=== PATIENT | male | born 1960 | race Two or more races ===

== ENCOUNTER 2019-04-19 12:18 | Inpatient (IN) | payer OTHER ==
[~2019-04-19] VITALS: Ht 162.6 cm; Wt 92.5 kg
[2019-04-19] MEDS ORDERED: PANT40TA4 PO (12:43)
[2019-04-19] MEDS ORDERED: LISI40TA4 PO (12:43)
[2019-04-19] MEDS ORDERED: ATOR10TA PO (12:43)
[2019-04-19] MEDS ORDERED: METF-440 PO (12:43)
[2019-04-19] MEDS ORDERED: IBUP-1957 PO (12:43)
[2019-04-19] MEDS ORDERED: OMEG1CAP55 PO (12:43)
[2019-04-19] MEDS ORDERED: LORA10TA7 PO (12:43)
[2019-04-19] MEDS ORDERED: ASPI81TA31 PO (12:43)
[2019-04-19] MEDS ORDERED: PIPERACILLIN SODIUM/TAZOBACTAM 3.375 G in IV DEXTROSE 5% 50 ML IV ONE (12:45)
[2019-04-19] MEDS ORDERED: VANCOMYCIN IV 1,000 MG in IV DEXTROSE 5% 250 ML IV ONE (12:45)
[2019-04-19] MEDS ORDERED: IV NORMAL SALINE 1000 ML BAG IV ONE (12:45)
[2019-04-19 12:59] LABS: *BILIRUBIN,URIN NEGATIVE (NEGATIVE); *BLOOD, URINE NEGATIVE (NEGATIVE); *CLARITY,URINE CLEAR (CLEAR); *COLOR,URINE DARK YELLOW (YELLOW); *KETONES,URINE TRACE (NEGATIVE); LEUKOCYTE ESTERASE ,URINE NEGATIVE (NEGATIVE); NITRITE, URINE NEGATIVE (NEGATIVE); UGLUCOSE 2+ (NEGATIVE)
[2019-04-19 13:01] LABS: BASOPHILS # (AUTO) 0.1 K/uL (0.0-8.0); BASOPHILS % (AUTO) 0.6 % (0.0-2.0); EOSINOPHILS # (AUTO) 0.2 K/uL (0.0-0.7); EOSINOPHILS % (AUTO) 2.7 % (0.0-7.0); HEMATOCRIT 43.2 % (36.7-47.1); HEMOGLOBIN 14.7 g/dL (12.5-16.3); LYMPHOCYTES # (AUTO) 2.2 K/uL (20.0-40.0); LYMPHOCYTES % (AUTO) 28.1 % (20.5-51.5); MEAN CORPUSCULAR HEMOGLOBIN 30.9 uug (23.8-33.4); MEAN CORPUSCULAR HGB CONC 34 g/dL (32.5-36.3); MEAN CORPUSCULAR VOLUME 90.7 fL (73.0-96.2); MONOCYTES # (AUTO) 0.7 K/uL (2.0-10.0); MONOCYTES % (AUTO) 8.4 % (0.0-11.0); NEUTROPHILS # (AUTO) 4.7 K/uL (1.8-8.9); NEUTROPHILS % (AUTO) 60.2 % (38.5-71.5); PLATELET COUNT (AUTO) 250 K/uL (152-348); RED BLOOD CELL COUNT(AUTO) 4.76 MIL/uL (4.06-5.63); WHITE BLOOD COUNT (AUTO) 7.9 K/uL (3.6-10.2)
[2019-04-19] MEDS ORDERED: PIPERACILLIN/TAZOBACTAM/D5W 50 ML IV ONE (13:08)
[2019-04-19 13:09] LABS: CREATININE 1.1 mg/dL (0.6-1.3); POTASSIUM 3.7 mmol/L (3.5-5.1)
[2019-04-19] MEDS ORDERED: VANCOMYCIN IV 200 ML ONE (13:09)
[2019-04-19 13:10] LABS: BACTERIA,URINE NONE SEEN /HPF (NONE SEEN); RBC,URINE 0-3 /HPF (0-3); SQUAMOUS EPITHELIAL CELL,UR FEW /HPF (NONE SEEN); WBC,URINE 0-3 /HPF (0-3)
--- NOTE | 2019-04-19 13:14 | NUR ---
PT IS IN ROOM #2B. DR RICHARDSON EVALUATED THE PT.
[2019-04-19 13:15] LABS: BILIRUBIN,DIRECT 0.2 mg/dL (0.0-0.2); BILIRUBIN,TOTAL 0.6 mg/dL (0.2-1.0); TOTAL PROTEIN, SERUM 7.8 g/dL (6.4-8.2)
[2019-04-19] MEDS ORDERED: SWABABLE VALVE TRANSFER SET EA MC ONE (13:39)
[2019-04-19] MEDS ORDERED: IOHEXOL 300MG/ML 100 ML INFUS..BTL ONE (13:39)
[2019-04-19] MEDS ORDERED: NORMAL SALINE FLUSH 10 ML DISP.SYRIN ONE (13:39)
[2019-04-19] MEDS ORDERED: IV NORMAL SALINE 250 ML IV ONE (13:40)
--- NOTE | 2019-04-19 15:21 | NUR ---
PT WAS TRANSFERED TO ROOM 3319. REPORT WAS GIVEN TO M/S RN.
[2019-04-19] MEDS ORDERED: ZOLPIDEM 5 MG TABLET PO PRN (16:15)
[2019-04-19] MEDS ORDERED: HYDROCODONE/APAP 5-325MG TABLET PO PRN (16:15)
[2019-04-19] MEDS ORDERED: MAGNESIUM HYDROXIDE 30 ML LIQUID UDC PO PRN (16:15)
[2019-04-19] MEDS ORDERED: LORATADINE 10 MG TABLET PO SCH (16:15)
[2019-04-19] MEDS ORDERED: ACETAMINOPHEN 325 MG TABLET PO PRN (16:15)
[2019-04-19] MEDS ORDERED: ONDANSETRON 4 MG/2 ML VIAL IV PRN (16:15)
[2019-04-19] MEDS ORDERED: DEXTROSE 50% 50 ML DISP.SYRIN IV PRN (16:15)
--- NOTE | 2019-04-19 16:34 | NUR ---
CLINICAL PHARMACY NOTE:VANCOMYCIN Request for vancomycin dosing on 58 y/o male 162.56cm 92.5kg for abdominal wall cellulitis Temp 98.2 BUN 29 Scr 1.1 WBC 7.9 also receiving Zosyn. Got vancomycin 1gm in ER Continue vancomycin 1250mg ivpb q16h. Estimate trough 14. Will order trough level prior to 4th dose. Will continue to monitor
[2019-04-19] MEDS: BLOOD SUGAR DIAGNOSTIC 1 EACH STRIP VI SCH ×2 (16:45→20:47)
[2019-04-19] MEDS: IV 1/2NS 1000 ML 1,000 ML IV PRN (17:15)
[2019-04-19] MEDS: METFORMIN HCL 500 MG TABLET PO SCH (17:15)
[2019-04-19] MEDS: INSULIN REGULAR, HUMAN 300 UNIT/3 ML VIAL SQ PRN ×2 (17:19→20:50)
[2019-04-19 18:11] VITALS: BP 129/74
[2019-04-19] MEDS: PIPERACILLIN/TAZOBACTAM/D5W 50 ML IV SCH ×2 (18:32→23:01)
--- NOTE | 2019-04-19 18:53 | NUR ---
Patient admission complete. Patient request to move IV site. Left forearm 22 gauge placed. Given IV fluid and antibiotic as ordered. Accucheck for blood glucose taken with sliding scale insulin coverage given. Tolerated 100% of dinner well. Will endorse to next shift. Baldo Matthew RN
--- NOTE | 2019-04-19 19:23 | NUR ---
Handoff to DIVYA Pack. Baldo Matthew RN Addendum: 04/19/19 at 1925 by BALDO LUX RN DIVYA Pack
--- NOTE | 2019-04-19 19:30 | NUR ---
PATIENT RECEIVED IN BED, WATCHING TV. IV INTACT AND PATENT IN LEFT FOREARM RUNNING FLUIDS AT 80 ML/HR. ABDOMINAL ABSCESS ASSESSED AND COVERED WITH MEPLEX. NO C/O PAIN OR SOB AT THIS TIME. WILL CONTINUE TO MONITOR.
[2019-04-19 20:36] VITALS: BP 109/53
[2019-04-19] MEDS ORDERED: ATORVASTATIN 10 MG TABLET PO SCH (21:00)
[2019-04-20] MEDS: VANCOMYCIN IV 1,250 MG in IV DEXTROSE 5% 500 ML IV SCH ×2 (00:15→17:20)
[2019-04-20] MEDS: PIPERACILLIN/TAZOBACTAM/D5W 50 ML IV SCH ×3 (05:12→19:07)
[2019-04-20 05:28] VITALS: BP 115/54
--- NOTE | 2019-04-20 06:23 | NUR ---
PATIENT SLEPT WELL DURING THE NIGHT. ALL DUE MEDICATIONS GIVEN-TOLERATED WELL. SIDE RAILS UP BILATERALLY FOR SAFETY. WILL ENDORSE TO ONCOMING SHIFT ACCORDINGLY.
[2019-04-20] MEDS: BLOOD SUGAR DIAGNOSTIC 1 EACH STRIP VI SCH ×4 (06:34→20:38)
[2019-04-20 06:35] LABS: CREATININE 0.9 mg/dL (0.6-1.3); MAGNESIUM 1.6 mg/dL (1.8-2.4); PHOSPHOROUS 3.5 mg/dL (2.5-4.9); POTASSIUM 3.4 mmol/L (3.5-5.1)
[2019-04-20 06:44] LABS: BASOPHILS % (AUTO) 0.6 % (0.0-2.0); EOSINOPHILS # (AUTO) 0.4 K/uL (0.0-0.7); HEMOGLOBIN 13.7 g/dL (12.5-16.3); MONOCYTES # (AUTO) 0.5 K/uL (2.0-10.0); MONOCYTES % (AUTO) 7.7 % (0.0-11.0)
[2019-04-20 06:47] LABS: THYROID STIMULATING HORMONE 4.131 mIU/mL (0.358-3.740)
[2019-04-20 07:02] LABS: EOSINOPHILS % (AUTO) 6.8 % (0.0-7.0); HEMATOCRIT 40.3 % (36.7-47.1); LYMPHOCYTES # (AUTO) 1.3 K/uL (20.0-40.0); LYMPHOCYTES % (AUTO) 23.1 % (20.5-51.5); MEAN CORPUSCULAR HEMOGLOBIN 30.7 uug (23.8-33.4); MEAN CORPUSCULAR HGB CONC 34 g/dL (32.5-36.3); MEAN CORPUSCULAR VOLUME 90.5 fL (73.0-96.2); NEUTROPHILS # (AUTO) 3.6 K/uL (1.8-8.9); NEUTROPHILS % (AUTO) 61.8 % (38.5-71.5); PLATELET COUNT (AUTO) 218 K/uL (152-348); RED BLOOD CELL COUNT(AUTO) 4.46 MIL/uL (4.06-5.63)
[2019-04-20 07:03] LABS: WHITE BLOOD COUNT (AUTO) 5.9 K/uL (3.6-10.2)
--- NOTE | 2019-04-20 07:30 | NUR ---
Patient awake, alert, on bed, not in any form of distress. He denies any pain or discomfort at this time. Assisted with his needs. Call light placed within reach.
[2019-04-20] MEDS: ASPIRIN 81 MG TAB.CHEW PO SCH (08:25)
[2019-04-20] MEDS: METFORMIN HCL 500 MG TABLET PO SCH (08:25)
[2019-04-20] MEDS: PANTOPRAZOLE SODIUM 40 MG TABLET.DR PO SCH (08:26)
[2019-04-20] MEDS: LISINOPRIL 20 MG TABLET PO SCH (09:00)
[2019-04-20] MEDS ORDERED: LORATADINE 10 MG TABLET PO PRN (09:00)
--- NOTE | 2019-04-20 09:21 | NUR ---
Verified with Dr. Segovia regarding due lisinopril at this time with BP of 106/64 and per MD hold Lisinopril for SBP less than 110mmHg.
[2019-04-20] MEDS ORDERED: MAGNESIUM OXIDE 400 MG TABLET PO ONE (09:30)
[2019-04-20] MEDS ORDERED: POTASSIUM CHLORIDE 20 MEQ TAB.PRT.SR PO ONE (09:30)
--- NOTE | 2019-04-20 11:12 | NUR ---
CLINICAL PHARMACY NOTE:VANCOMYCIN To continue vancomycin dosing on 58 y/o male 162.56cm 92.5kg for abdominal wall cellulitis Temp 98.1 BUN 20 Scr 0.9 WBC 5.9 also receiving Zosyn. Got vancomycin 1gm in ER Continue vancomycin 1250mg ivpb q16h. Estimate trough 14. Second dose today at 1600. Will order trough level prior to 4th dose (not ordered yet). Will continue to monitor
[2019-04-20 11:40] VITALS: BP 99/53
[2019-04-20] MEDS: INSULIN REGULAR, HUMAN 300 UNIT/3 ML VIAL SQ PRN ×3 (12:15→20:40)
[2019-04-20] MEDS: IV 1/2NS 1000 ML 1,000 ML IV PRN (13:36)
[2019-04-20 15:58] VITALS: BP 99/52
--- NOTE | 2019-04-20 20:00 | NUR ---
RECEIVED PATIENT AWAKE, SITTING IN CHAIR AT BEDSIDE. PATIENT IS A/O X4. DENIES PAIN OR DISCOMFORT. NO RESP. DISTRESS NOTED. VSS. IVF INFUSING WELL TO LEFT FA #22 GAUGE. CALL LIGHT IN REACH. ALL NEEDS ATTENDED. WILL CONTINUE TO MONITOR AND ASSESS.
[2019-04-20 20:12] VITALS: BP 110/65
[2019-04-20] MEDS: CULTURELLE CAPSULE PO SCH (20:38)
[2019-04-21] MEDS: PIPERACILLIN/TAZOBACTAM/D5W 50 ML IV SCH ×3 (00:14→12:49)
[2019-04-21 06:20] VITALS: BP 112/62
[2019-04-21] MEDS: IV 1/2NS 1000 ML 1,000 ML IV PRN (06:20)
[2019-04-21] MEDS: BLOOD SUGAR DIAGNOSTIC 1 EACH STRIP VI SCH ×4 (06:35→21:00)
[2019-04-21 07:05] LABS: BASOPHILS % (AUTO) 0.7 % (0.0-2.0); EOSINOPHILS # (AUTO) 0.5 K/uL (0.0-0.7); EOSINOPHILS % (AUTO) 8.9 % (0.0-7.0); HEMATOCRIT 42.1 % (36.7-47.1); LYMPHOCYTES # (AUTO) 0.8 K/uL (20.0-40.0); LYMPHOCYTES % (AUTO) 14.9 % (20.5-51.5); MEAN CORPUSCULAR HEMOGLOBIN 30.4 uug (23.8-33.4); MEAN CORPUSCULAR HGB CONC 33 g/dL (32.5-36.3); MONOCYTES # (AUTO) 0.5 K/uL (2.0-10.0); NEUTROPHILS # (AUTO) 3.6 K/uL (1.8-8.9); NEUTROPHILS % (AUTO) 66.5 % (38.5-71.5); PLATELET COUNT (AUTO) 208 K/uL (152-348); RED BLOOD CELL COUNT(AUTO) 4.62 MIL/uL (4.06-5.63); WHITE BLOOD COUNT (AUTO) 5.4 K/uL (3.6-10.2)
[2019-04-21 07:39] LABS: CREATININE 0.9 mg/dL (0.6-1.3); MAGNESIUM 1.4 mg/dL (1.8-2.4); PHOSPHOROUS 2.9 mg/dL (2.5-4.9); POTASSIUM 3.7 mmol/L (3.5-5.1)
[2019-04-21 08:00] VITALS: BP 141/86
[2019-04-21] MEDS: INSULIN REGULAR, HUMAN 300 UNIT/3 ML VIAL SQ PRN ×3 (08:13→17:25)
[2019-04-21] MEDS: VANCOMYCIN IV 1,250 MG in IV DEXTROSE 5% 500 ML IV SCH (08:14)
[2019-04-21] MEDS: CULTURELLE CAPSULE PO SCH ×2 (08:25→22:15)
[2019-04-21] MEDS: ASPIRIN 81 MG TAB.CHEW PO SCH (08:25)
[2019-04-21] MEDS: PANTOPRAZOLE SODIUM 40 MG TABLET.DR PO SCH (08:25)
[2019-04-21] MEDS: LISINOPRIL 20 MG TABLET PO SCH (08:26)
[2019-04-21] MEDS ORDERED: MAGNESIUM SULFATE 2 GM in IV DEXTROSE 5% 100 ML IV ONE (09:30)
[2019-04-21] MEDS: MAGNESIUM SULFATE/D5W 100 ML IV SCH ×2 (10:18→11:13)
[2019-04-21 11:25] VITALS: BP 123/67
--- NOTE | 2019-04-21 11:35 | NUR ---
CLINICAL PHARMACY NOTE:VANCOMYCIN S: To continue vancomycin dosing on 58 y/o male patient for abdominal wall cellulitis O: Temp 98 BUN 12 Scr 0.9 WBC 5.4 ht 162.5 cm wt 92.5 kg Plan Continue vancomycin same dose of 1250mg ivpb q16h for today. 3rd dose today at 0800. Will order trough level prior to 4th dose (ordered for 04/21 at 2330- RN has been informed to hold midnight dose if trough level above 20 mcg/ml). Pharmacy shall review the level in am & adjust the dose if needed. Will continue to monitor
--- NOTE | 2019-04-21 13:48 | NUR ---
WOUND CARE CONSULT: PT PRESENTS WITH ABDOMINAL WOUND/ABSCESS WHICH IS ADJACENT TO OLD SURGICAL SCAR, PRESENT ON ADMISSION. PT STATES HAD PREVIOUS FISTULA SURGERY BUT DOES NOT REMEMBER WHO MD WAS. DEFER TO MD FOR POSSIBLE SURGICAL CONSULT. RECOMMENDATIONS MADE FOR SKIN PROTECTION AND WOUND CARE. DISCUSSED WITH NURSING STAFF. WILL SEE PRN. PT IS CONTINENT AND AMBULATORY. CURRENT DIMITRIOS SCORE IS 21. Addendum: 04/21/19 at 1350 by TJ EWING RN Amended: Links added.
[2019-04-21 15:29] VITALS: BP 110/58
--- NOTE | 2019-04-21 19:39 | NUR ---
pt is self care. Eating well. voiding well. Abdominal wound cleanse. No c/o pain. blood sugars monitored. Out of bed with all meals. bed low and locked. call light within reached. will cont to monitor.
[2019-04-21 20:39] VITALS: BP 125/71
[2019-04-22] MEDS: IV 1/2NS 1000 ML 1,000 ML IV PRN (00:21)
[2019-04-22] MEDS: VANCOMYCIN IV 1,250 MG in IV DEXTROSE 5% 500 ML IV SCH (00:21)
[2019-04-22 05:34] VITALS: BP 122/64
[2019-04-22] MEDS: BLOOD SUGAR DIAGNOSTIC 1 EACH STRIP VI SCH ×4 (06:32→21:24)
[2019-04-22] MEDS: INSULIN REGULAR, HUMAN 300 UNIT/3 ML VIAL SQ PRN ×4 (06:39→21:26)
[2019-04-22 07:00] LABS: BASOPHILS % (AUTO) 0.8 % (0.0-2.0); EOSINOPHILS # (AUTO) 0.4 K/uL (0.0-0.7); EOSINOPHILS % (AUTO) 8.6 % (0.0-7.0); HEMATOCRIT 41.7 % (36.7-47.1); HEMOGLOBIN 14.3 g/dL (12.5-16.3); LYMPHOCYTES # (AUTO) 1.1 K/uL (20.0-40.0); LYMPHOCYTES % (AUTO) 20.5 % (20.5-51.5); MEAN CORPUSCULAR HEMOGLOBIN 30.9 uug (23.8-33.4); MEAN CORPUSCULAR HGB CONC 34 g/dL (32.5-36.3); MEAN CORPUSCULAR VOLUME 90.1 fL (73.0-96.2); MONOCYTES # (AUTO) 0.4 K/uL (2.0-10.0); MONOCYTES % (AUTO) 7.8 % (0.0-11.0); NEUTROPHILS # (AUTO) 3.2 K/uL (1.8-8.9); NEUTROPHILS % (AUTO) 62.3 % (38.5-71.5); PLATELET COUNT (AUTO) 207 K/uL (152-348); RED BLOOD CELL COUNT(AUTO) 4.62 MIL/uL (4.06-5.63); WHITE BLOOD COUNT (AUTO) 5.2 K/uL (3.6-10.2)
--- NOTE | 2019-04-22 07:00 | NUR ---
PATIENT RECEIVED IN BED, AWAKE. AOX4. DENIES PAIN OR SOB. UPON INSPECTION OF ABDOMINAL DRESSING INTACT AND DUE FOR DRESSING CHANGE TODAY. ALL NEEDS MET AT THIS TIME. SAFETY AND FALL PRECAUTIONS IN PLACE. BED IN LOW POSITION AND LOCKED. CALL LIGHT IN REACH. WILL CONTINUE TO MONITOR.
--- NOTE | 2019-04-22 07:00 | NUR ---
Pt is A&Ox3, calm & cooperative. Denies any pain. IV Vanco given as per pharmacist at 2200 last night. Dressing to abdomen D&I. No voiced concerns. No diabetic crisis observed during shift. All needs met. Addendum: 04/22/19 at 0706 by JONG MENSAH RN Correction to note: IV Vanco given at 0000. Vanco trough at 2230 last night was 4.5.
[2019-04-22 07:09] LABS: CREATININE 0.8 mg/dL (0.6-1.3); MAGNESIUM 1.5 mg/dL (1.8-2.4); POTASSIUM 3.5 mmol/L (3.5-5.1)
[2019-04-22] MEDS: VANCOMYCIN IV 1,500 MG in IV DEXTROSE 5% 500 ML IV SCH ×2 (08:51→18:27)
[2019-04-22] MEDS: LISINOPRIL 20 MG TABLET PO SCH (08:52)
[2019-04-22] MEDS: ASPIRIN 81 MG TAB.CHEW PO SCH (08:55)
[2019-04-22] MEDS: PANTOPRAZOLE SODIUM 40 MG TABLET.DR PO SCH (08:55)
[2019-04-22] MEDS: CULTURELLE CAPSULE PO SCH ×2 (08:55→21:17)
[2019-04-22 11:07] VITALS: BP 132/71
--- NOTE | 2019-04-22 11:20 | NUR ---
CLINICAL PHARMACY NOTE:VANCOMYCIN S: To continue vancomycin dosing on 58 y/o male patient for abdominal wall cellulitis O: Temp 98.2 BUN 10 Scr 0.8 WBC 5.2 Vanco trough level: 4.5 (on 04/21 at 2330) ht 162.5 cm wt 92.5 kg Plan Since vanco trough level is 4.5 mcg/ml, will change vanco dose to 1500mg ivpb q10h for predicted vanco trough level of 15 mcg/ml. 1st dose today at 0900. Will order trough level prior to 4th dose (ordered for 04/23 at 1430). Pharmacy shall review the level in am & adjust the dose if needed. Will continue to monitor
[2019-04-22] MEDS: MAGNESIUM SULFATE/D5W 100 ML IV SCH ×2 (13:29→15:19)
[2019-04-22 15:32] VITALS: BP 110/64
[2019-04-22] MEDS: METFORMIN HCL 500 MG TABLET PO SCH (18:27)
--- NOTE | 2019-04-22 19:03 | NUR ---
PATIENT AOX4 THROUGHOUT THE SHIFT. VITAL SIGNS STABLE. PATIENT COMPLIANT WITH ALL CARE. ALL NEEDS MET DURING SHIFT.
[2019-04-22 19:21] VITALS: BP 143/69
[2019-04-23 03:26] VITALS: BP 131/77
[2019-04-23] MEDS: IV 1/2NS 1000 ML 1,000 ML IV PRN (05:14)
[2019-04-23] MEDS: VANCOMYCIN IV 1,500 MG in IV DEXTROSE 5% 500 ML IV SCH ×2 (05:14→16:15)
[2019-04-23 06:44] LABS: BASOPHILS % (AUTO) 0.6 % (0.0-2.0); EOSINOPHILS # (AUTO) 0.4 K/uL (0.0-0.7); EOSINOPHILS % (AUTO) 7.1 % (0.0-7.0); HEMATOCRIT 41.3 % (36.7-47.1); HEMOGLOBIN 14.2 g/dL (12.5-16.3); LYMPHOCYTES % (AUTO) 16.6 % (20.5-51.5); MEAN CORPUSCULAR HEMOGLOBIN 30.9 uug (23.8-33.4); MEAN CORPUSCULAR HGB CONC 34 g/dL (32.5-36.3); MONOCYTES # (AUTO) 0.6 K/uL (2.0-10.0); MONOCYTES % (AUTO) 9.8 % (0.0-11.0); NEUTROPHILS # (AUTO) 4.1 K/uL (1.8-8.9); NEUTROPHILS % (AUTO) 65.9 % (38.5-71.5); PLATELET COUNT (AUTO) 219 K/uL (152-348); RED BLOOD CELL COUNT(AUTO) 4.58 MIL/uL (4.06-5.63); WHITE BLOOD COUNT (AUTO) 6.1 K/uL (3.6-10.2)
[2019-04-23] MEDS: BLOOD SUGAR DIAGNOSTIC 1 EACH STRIP VI SCH ×4 (06:44→21:02)
--- NOTE | 2019-04-23 06:52 | NUR ---
Patient awake alert and orientedx4. Rested well in between care. IV on L AC intact and patent with 1/2 NS at 80cc/hr as well as vanco abx infusing. Wound care on lower abdomen changed last night. No acute distress noted at this time. Call light within reach. All needs met. Safety measures implemented and effective. Comfort maintained at all times. Continue plan of care.
[2019-04-23 06:54] LABS: CREATININE 0.8 mg/dL (0.6-1.3); MAGNESIUM 1.7 mg/dL (1.8-2.4); PHOSPHOROUS 3.4 mg/dL (2.5-4.9); POTASSIUM 3.5 mmol/L (3.5-5.1)
--- NOTE | 2019-04-23 07:15 | NUR ---
RECEIVED PATIENT ON BED, AAOX4 NO ACUTE DISTRESS NOTED. ON CONTACT ISOLATION FOR MRSA OF THE WOUND. IV ACCESS ON LEFT AC #20 INTACT AND PATENT RUNNING 1/2 NS @ 80 CC/HR INFUSING WELL. WOUND DRESSING ON ABDOMEN CLEAN AND INTACT. BLOOD SUGAR THIS AM 180 WILL NEED INSULIN COVERAGE BEFORE BREAKFAST. COMFORT MEASURES PROVIDED. CALL LIGHT WITHIN REACH. WILL CONTINUE TO MONITOR CLOSELY.
[2019-04-23] MEDS: INSULIN REGULAR, HUMAN 300 UNIT/3 ML VIAL SQ PRN ×3 (08:16→17:13)
[2019-04-23] MEDS: CULTURELLE CAPSULE PO SCH ×2 (08:24→20:54)
[2019-04-23] MEDS: ASPIRIN 81 MG TAB.CHEW PO SCH (08:24)
[2019-04-23] MEDS: METFORMIN HCL 500 MG TABLET PO SCH ×2 (08:24→17:11)
[2019-04-23] MEDS: PANTOPRAZOLE SODIUM 40 MG TABLET.DR PO SCH (08:24)
[2019-04-23] MEDS: LISINOPRIL 20 MG TABLET PO SCH (08:35)
[2019-04-23 12:17] VITALS: BP 120/72
--- NOTE | 2019-04-23 12:30 | NUR ---
SEEN AND EXAMINED BY DR. TONY.
[2019-04-23] MEDS: MAGNESIUM SULFATE/D5W 100 ML IV SCH ×2 (13:41→14:37)
--- NOTE | 2019-04-23 14:17 | NUR ---
CLINICAL PHARMACY NOTE:VANCOMYCIN S: To continue vancomycin dosing on 58 y/o male patient for abdominal wall cellulitis O: Temp 98.3 BUN 11 Scr 0.8 WBC 6.1 Trough level: pending today at 1430 ht 162.5 cm wt 92.5 kg Plan Continued on vanco 1500mg ivpb q10h for predicted vanco trough level of 15 mcg/ml. Trough due today at 1430. Will check level and adjust as needed. Will follow when available Addendum: 04/23/19 at 1532 by VADIM RODRIGEZ ADM TROUGH RESULTED 13, ADJUSTED REGIMEN TO 1500MG Q9H FOR NEW ESTIMATED TROUGH OF 15.8, FIRST DOSE TODAY AT 1600. NEXT TROUGH BEFORE 4TH SCHEDULED DOSE DUE TOMORROW AT 1830. WILL CHECK AND ADJUST NEEDED. WILL FOLLOW
[2019-04-23 16:12] VITALS: BP 131/69
--- NOTE | 2019-04-23 20:00 | NUR ---
PATIENT RECEIVED AWAKE, ALERT, AND SITTING IN CHAIR. NO COMPLAINTS OF PAIN OR ACUTE DISTRESS VERBALIZED. VS FROM PREVIOUS SHIFT ARE WNL AND PATIENT IS STABLE. ALL SAFETY AND FALL PRECAUTION MEASURES ARE IN PLACE. BED IS IN LOWEST POSITION WITH BRAKE APPLIED. 2 SIDE RAILS ARE UP AND IN LOCKED POSITION. CALL LIGHT AND PERSONAL ITEMS ARE WITHIN REACH AT ALL TIMES. WILL CONTINUE TO MONITOR.
[2019-04-23 20:03] VITALS: BP 120/60
[2019-04-24] MEDS: VANCOMYCIN IV 1,500 MG in IV DEXTROSE 5% 500 ML IV SCH ×3 (00:13→17:05)
[2019-04-24] MEDS: IV 1/2NS 1000 ML 1,000 ML IV PRN (00:13)
--- NOTE | 2019-04-24 05:21 | NUR ---
PATIENT SLEPT COMFORTABLY THROUGHOUT NIGHT WITHOUT ANY COMPLAINTS OF PAIN OR ACUTE DISTRESS. ALL PRESCRIBED MEDICATIONS AND IV ANTIBIOTICS PROVIDED ORDERED, TOLERATED WELL, WITHOUT ANY ADVERSE EFFECTS. ALL NURSING NEEDS MET PROMPTLY AND PATIENT WAS KEPT WARM AND DRY. VS ARE WNL AND PATIENT HAS BEEN STABLE THIS SHIFT. SAFETY AND FALL PRECAUTIONS REMAIN IN PLACE. BED IN LOWEST POSITION WITH BRAKE APPLIED. 2 SIDE RAILS ARE UP AND IN THE LOCKED POSITION. CALL LIGHT AND PERSONAL ITEMS ARE WITHIN REACH AT ALL TIMES. WILL PROVIDE REPORT TO ONCOMING SHIFT.
[2019-04-24 05:47] VITALS: BP 119/62
[2019-04-24] MEDS: BLOOD SUGAR DIAGNOSTIC 1 EACH STRIP VI SCH ×3 (06:15→15:54)
[2019-04-24 06:38] LABS: BASOPHILS % (AUTO) 0.9 % (0.0-2.0); EOSINOPHILS # (AUTO) 0.3 K/uL (0.0-0.7); EOSINOPHILS % (AUTO) 6.3 % (0.0-7.0); HEMATOCRIT 43.6 % (36.7-47.1); HEMOGLOBIN 14.8 g/dL (12.5-16.3); LYMPHOCYTES # (AUTO) 1.3 K/uL (20.0-40.0); LYMPHOCYTES % (AUTO) 23.6 % (20.5-51.5); MEAN CORPUSCULAR HEMOGLOBIN 30.5 uug (23.8-33.4); MEAN CORPUSCULAR HGB CONC 34 g/dL (32.5-36.3); MEAN CORPUSCULAR VOLUME 90.2 fL (73.0-96.2); MONOCYTES # (AUTO) 0.5 K/uL (2.0-10.0); MONOCYTES % (AUTO) 9.8 % (0.0-11.0); NEUTROPHILS # (AUTO) 3.3 K/uL (1.8-8.9); NEUTROPHILS % (AUTO) 59.4 % (38.5-71.5); PLATELET COUNT (AUTO) 221 K/uL (152-348); RED BLOOD CELL COUNT(AUTO) 4.84 MIL/uL (4.06-5.63); WHITE BLOOD COUNT (AUTO) 5.5 K/uL (3.6-10.2)
[2019-04-24 06:59] LABS: CREATININE 0.7 mg/dL (0.6-1.3); MAGNESIUM 1.9 mg/dL (1.8-2.4); PHOSPHOROUS 3.2 mg/dL (2.5-4.9); POTASSIUM 3.9 mmol/L (3.5-5.1)
[2019-04-24] MEDS: CULTURELLE CAPSULE PO SCH (08:04)
[2019-04-24] MEDS: METFORMIN HCL 500 MG TABLET PO SCH ×2 (08:04→17:12)
[2019-04-24] MEDS: LISINOPRIL 20 MG TABLET PO SCH (08:04)
[2019-04-24] MEDS: ASPIRIN 81 MG TAB.CHEW PO SCH (08:04)
[2019-04-24] MEDS: PANTOPRAZOLE SODIUM 40 MG TABLET.DR PO SCH (08:04)
[2019-04-24] MEDS ORDERED: VANC1PLA10 IV (08:44)
--- NOTE | 2019-04-24 09:02 | NUR ---
CLINICAL PHARMACY NOTE:VANCOMYCIN S: To continue vancomycin dosing on 58 y/o male patient for abdominal wall cellulitis O: Temp 98.2 BUN 11 Scr 0.7 WBC 5.5 Trough level: 13 04/23 @1430 ht 162.5 cm wt 92.5 kg Plan Will continue regimen of 1500mg q9h for estimated trough of 15.8. Trough due today at 1830. Will check level when available today and adjust as needed. Will continue to follow Addendum: 04/24/19 at 1727 by JASON PETERSON Patient being discharged tonight. Vancomycin trough drawn 2 hours early was 17. Order one more dose of vancomycin 1500mg prior to discharge. Patient will be getting vancomycin by home health starting tomorrow
[2019-04-24 10:25] VITALS: BP 130/72
[2019-04-24] MEDS: INSULIN REGULAR, HUMAN 300 UNIT/3 ML VIAL SQ PRN (11:26)
[2019-04-24 15:10] VITALS: BP 134/80
--- NOTE | 2019-04-24 19:10 | NUR ---
d/c orders received noted and carried out,d/c instruction and education given to the pt.pt left the facility via private car in stable condition
== END 2019-04-24 19:10 | disposition home health service (06) | DRG 383 ==
LOC: ER 12:20 → MEDSURG3 15:18
PROVIDERS: ADMIT Internal Medicine; ATTEND Internal Medicine
PROC: 05HY33Z Insertion of Infusion Device into Upper Vein, Percutaneous Approach (ICD-10-PCS; principal; 2019-04-24)
DX: L03.311 Cellulitis of abdominal wall (principal); E11.65 Type 2 diabetes mellitus with hyperglycemia; K76.0 Fatty (change of) liver, not elsewhere classified; L02.211 Cutaneous abscess of abdominal wall; B95.61 Methicillin susceptible Staphylococcus aureus infection as the cause of diseases classified elsewhere; K21.9 Gastro-esophageal reflux disease without esophagitis; E66.9 Obesity, unspecified; Z68.35 Body mass index [BMI] 35.0-35.9, adult; E78.5 Hyperlipidemia, unspecified; Z79.84 Long term (current) use of oral hypoglycemic drugs; Z79.82 Long term (current) use of aspirin; Z79.899 Other long term (current) drug therapy; H91.90 Unspecified hearing loss, unspecified ear; K80.20 Calculus of gallbladder without cholecystitis without obstruction; I10 Essential (primary) hypertension; E65 Localized adiposity
CPT/HCPCS: 36415; 36569; 71045; 83735; 84100; 84443; 85025; 87070; 87077; 93005; A4217; A4663; G0378; J1815; J2543; J3370; J3475; J3490; J7030; J7050; J7060; Q9967